=== PATIENT | male | born 1950 | race Caucasian/White ===

== ENCOUNTER 2017-06-02 06:31 | Day surgery (SDC) | payer MEDICARE ==
[~2017-06-02] VITALS: Ht 175.3 cm; Wt 93.6 kg
[~2017-06-02 06:31] MED LIST: AMLO5TAB96 PO; BUSP5 PO; DIOV80TA4 PO; DOXA4 PO; KAOP240C PO; LABE300 PO; MINO2.5 PO; PROT40TA PO; TAMS5CAP PO; TEMA7.5C9 PO
[2017-06-02 06:51] VITALS: BP 149/88; PULSE 58; RESP 20; TEMP 97.7; O2SAT 94
[2017-06-02] MEDS ORDERED: DOXA1TAB34 PO (07:09)
[2017-06-02] MEDS ORDERED: MAGN400T2 PO (07:09)
[2017-06-02] MEDS ORDERED: POTA-163 PO (07:09)
[2017-06-02] MEDS ORDERED: VITA1000 PO (07:09)
[2017-06-02] MEDS ORDERED: MINO2.5T PO (07:09)
[2017-06-02] MEDS ORDERED: METO5TAB3 PO (07:09)
[2017-06-02] MEDS ORDERED: CLON0.2T PO (07:09)
[2017-06-02] MEDS ORDERED: FURO20TA PO (07:09)
[2017-06-02] MEDS ORDERED: ULOR80TA2 PO (07:09)
[2017-06-02] MEDS ORDERED: NEBI20 PO (07:09)
[2017-06-02] MEDS ORDERED: CIAL5TAB PO (07:09)
[2017-06-02] MEDS ORDERED: ASPI-183 PO (07:09)
[2017-06-02] MEDS ORDERED: FELO10TA PO (07:09)
[2017-06-02] MEDS ORDERED: SODIUM CHLOR 0.9% 1000 ML IV SCH (07:30)
[2017-06-02] MEDS ORDERED: MIDAZOLAM HCL 2 MG/2 ML VIAL ONE (07:34)
[2017-06-02] MEDS ORDERED: LIDOCAINE 1%/EPINEPHrine 1:100,000 SOLN 20 ML VIAL ONE (07:39)
[2017-06-02 08:15] LABS: AUTOMATED NEUTROPHIL # 5.1 TH/MM3 (1.8-7.7); BASOPHIL % 0.4 % (0.0-2.0); EOSINOPHIL # 0.3 TH/MM3 (0-0.4); EOSINOPHIL % 3.7 % (0.0-4.0); HEMATOCRIT 34.1 % (39.0-51.0); HEMO FLAGS DIFF FINAL; LYMPHOCYTE # 1.9 TH/MM3 (1.0-4.8); MEAN CELL VOLUME 90.4 FL (80.0-100.0); MEAN CORPUSCULAR HEMOGLOBIN 29.9 PG (27.0-34.0); MEAN CORPUSCULAR HGB CONC 33.1 % (32.0-36.0); MONO % 7.5 % (0.0-8.0); NEUT % 64.4 % (16.0-70.0); PLATELET COUNT 191 TH/MM3 (150-450); RED BLOOD COUNT 3.77 MIL/MM3 (4.50-5.90); WHITE BLOOD COUNT 7.9 TH/MM3 (4.0-11.0)
[2017-06-02 08:26] LABS: APTT (PATIENT) 29.7 SEC (24.3-30.1); PROTHROMBIN TIME - PATIENT 10.9 SEC (9.8-11.6)
--- NOTE | 2017-06-02 09:06 | PD.RAD ---
Post CT Procedure Prog Note Pre Procedure Diagnosis: (1) Renal cyst Post Procedure Diagnosis: (1) Renal cyst Procedure Date: Jun 02, 2017 Supervising Radiologist: Dago Davison Anesthesia: Conscious Sedation Plan of Activity Patient to Unit: [facility] Patient Condition: Good See PACS Report for procedural detail/treatment Dago Davison MD Jun 02, 2017 09:06
[2017-06-02 09:15] VITALS: BP 153/87; PULSE 60; RESP 18; TEMP 97.3; O2SAT 92
[2017-06-02 09:30] VITALS: BP 162/91; PULSE 59; RESP 18; O2SAT 90
[2017-06-02 10:00] VITALS: BP 157/88; PULSE 50; RESP 18; O2SAT 96
[2017-06-02 10:30] VITALS: BP 140/92; PULSE 57; RESP 16; O2SAT 95
--- NOTE | 2017-06-02 15:06 | RADRPT ---
EXAM DATE/TIME: 06/02/2017 08:42 [place] COMPARISON: No previous studies available for comparison. INDICATIONS : History of large left medial anterior mid left renal cyst with suspected resultant hydronephrosis. Im age guided cyst aspiration has been requested. SEDATION TIME: 30 minutes MEDICATION(S): 1.) 3 mg midazolam (Versed) IV 2.) 125 mcg fentanyl (Sublimaze) IV DEVICE(S): 1.) 18 gauge Gomez blunt needle 10cm FLUID: Total volume of 200 cc of brown/red fluid was removed. Fluid was sent for laboratory ordered studies. MEDICAL HISTORY : Renal failure, chronic. Renal and prostate cancer SURGICAL HISTORY : Appendectomy. Partial nephrectomy ENCOUNTER: Initial ACUITY: 1 day PAIN SCORE: 0/10 LOCATION: Left anterior PROCEDURE: 1.) Conscious sedation with continuous EKG and oximetry monitoring. PROCEDURE : CT guided aspiration of left renal cyst The risks, benefits and alternatives to the procedure were explained and verbal and written consent w as obtained. Using automated exposure control and adjustment of the mA and/or kV according to patien t size, radiation dose was kept as low as reasonably achievable to obtain optimal diagnostic quality images. The site was prepped in sterile fashion. Full sterile technique was used, including cap, ma sk, sterile gloves and gown and a large sterile sheet. Hand hygiene and 2% chlorhexidine and/or beta dine/alcohol prep was utilized per protocol for cutaneous antisepsis. The skin and subcutaneous tiss ues were infiltrated with local anesthetic solution. DICOM format image data is available electronic ally for review and comparison. An 18 gauge Vasquez needle was advanced into the anterior left mid renal pole cyst under careful CT g uidance. Approximately 200 cc of dark brown colored fluid was removed and needle was withdrawn. Post procedural CT exam demonstrated interval resolution of the cyst with no significant residual fluid. CONCLUSION: 1. Uncomplicated CT guided aspiration of anterior mid left renal pole cyst with 200 cc of dark brown colored fluid removed. Entire samples submitted for cytology per request. Dago Davison MD on June 02, 2017 at 15:02 Board Certified Radiologist. This report was verified electronically.
== END 2017-06-02 11:20 | disposition home or self-care (01) ==
LOC: HRAD 06:31 → HRIP 06:32 → HRAD 11:20
PROVIDERS: ATTEND Urology
DX: N28.1 Cyst of kidney, acquired (principal); N13.30 Unspecified hydronephrosis; I10 Essential (primary) hypertension; E78.00 Pure hypercholesterolemia, unspecified; Z85.528 Personal history of other malignant neoplasm of kidney; R20.0 Anesthesia of skin; Z01.818 Encounter for other preprocedural examination
CPT/HCPCS: 50390; 77012; 85025; 85610; 85730; 88173; 88305; 99152; 99153; J2250; J3010; J7030